=== PATIENT | female | born 1990 | race Caucasian/White ===

== ENCOUNTER 2021-04-28 20:19 | Emergency (ER) | payer MEDICAID ==
[2021-04-28 22:01] LABS: BLOOD UREA NITROGEN,BUN 10 mg/dL (7.0-18.0); CARBON DIOXIDE,CO2 22.7 mmol/L (21.0-32.0); CHLORIDE,CL 101 mmol/L (98-107); GLUCOSE RANDOM 100 mg/dL (74-106); POTASSIUM,K 3.8 mmol/L (3.5-5.1); SODIUM,NA 135 mmol/L (136-145)
== END 2021-04-28 23:13 | disposition home or self-care (01) ==
LOC: MW.ED 20:19
DX: O03.9 Complete or unspecified spontaneous abortion without complication (principal)
CPT/HCPCS: 36415; 76801; 76801-26; 80053; 81001; 84702; 85025; 86900; 86901; 99284-25

== ENCOUNTER 2022-04-09 21:18 | Inpatient (IN) | payer MEDICAID ==
[2022-04-09] MEDS ORDERED: Oxytocin/0.9 % Sodium Chloride 30 UNIT/500 ML BAG IV SCH (23:45)
[2022-04-09] MEDS ORDERED: Misoprostol 200 MCG Tab PO PRN (23:48)
[2022-04-09] MEDS ORDERED: Ondansetron 4 MG/2 ML SDV IVPUSH PRN (23:48)
[2022-04-09] MEDS ORDERED: Sodium Chloride 0.9% 10 ML Syringe FLUSH PRN (23:48)
[2022-04-09] MEDS ORDERED: Methylergonovine 0.2 MG/1 ML Amp IM PRN (23:48)
[2022-04-09] MEDS ORDERED: Sodium Chloride 0.9% 20 ML SDV IV PRN (23:48)
[2022-04-09] MEDS ORDERED: Sodium Chloride 0.9% 2.5 ML Syringe FLUSH PRN (23:48)
[2022-04-09] MEDS ORDERED: Carboprost Tromethamine 250 MCG/1 ML Amp IM PRN (23:48)
[2022-04-09] MEDS ORDERED: Water For Irrigation,Sterile 1,000 ML Container IRR PRN (23:48)
[2022-04-09] MEDS ORDERED: Butorphanol 1 MG/ML SDV IVPUSH PRN (23:48)
[2022-04-09] MEDS ORDERED: Tranexamic Acid 1,000 MG in Sodium Chloride 0.9% 100 ML IV PRN (23:48)
[2022-04-09] MEDS ORDERED: Lidocaine 1% 50 ML MDV INJECT PRN (23:48)
[2022-04-10] MEDS ORDERED: Ampicillin 2 GM in Sodium Chloride 0.9% 50 ML IV ONE ×2
[2022-04-10] MEDS ORDERED: Ampicillin 2 GM AdvVial IV ONE ×3 (00:34→00:44)
[2022-04-10] MEDS ORDERED: Sodium Chloride 0.9% 50 ML ONE (00:41)
[2022-04-10] MEDS ORDERED: Sodium Chloride 0.9% 100 ML ONE (00:46)
[2022-04-10] MEDS ORDERED: Ropivacaine/PF 400 MG/200 ML PCA ONE (01:05)
[2022-04-10] MEDS ORDERED: Lidocaine 2% with EPINEPHrine 1:200,000 20 ML SDV ONE (01:05)
[2022-04-10] MEDS ORDERED: Phenylephrine HCl In 0.9% NaCl 1 MG/10 ML Vial IVPUSH PRN (01:15)
[2022-04-10] MEDS ORDERED: Ropivacaine HCl/PF 400 MG in Premix Bag 1 BAG EPIDUR SCH (01:15)
[2022-04-10] MEDS ORDERED: Phenylephrine HCl In 0.9% NaCl 1 MG/10 ML Vial IVPUSH SCH (01:15)
[2022-04-10] MEDS ORDERED: ePHEDrine 50 MG/ML SDV IVPUSH PRN ×2 (01:15)
[2022-04-10] MEDS: Lactated Ringers 1,000 ML IV SCH ×2 (01:23→01:27)
[2022-04-10] MEDS ORDERED: Ampicillin 1 GM in Sodium Chloride 0.9% 50 ML IV SCH (04:00)
[2022-04-10] MEDS ORDERED: Acetaminophen 500 MG Tab PO PRN (06:24)
[2022-04-10] MEDS ORDERED: Lanolin 100% Cream 7 GM Tube TOP PRN (06:24)
[2022-04-10] MEDS ORDERED: oxyCODONE 5 MG Tab PO PRN (06:24)
[2022-04-10] MEDS ORDERED: Ibuprofen 800 MG Tab PO PRN (06:24)
[2022-04-10] MEDS ORDERED: Witch Hazel Medicated Pads 40/Jar TOP PRN (06:24)
[2022-04-10] MEDS ORDERED: Benzocaine/Menthol 20%-0.5% Spray 78 GM Cannister TOP PRN (06:24)
[2022-04-10] MEDS ORDERED: Ibuprofen 400 MG Tab PO PRN (06:24)
[2022-04-10] MEDS ORDERED: Docusate Sodium 100 MG Cap PO PRN (06:24)
[2022-04-10] MEDS ORDERED: Bisacodyl 10 MG Supp RECTAL PRN (06:24)
[2022-04-10] MEDS: Acetaminophen 500 MG Tab PO PRN ×2 (09:24→20:19)
[2022-04-11] MEDS: Acetaminophen 500 MG Tab PO PRN (05:37)
[2022-04-11] MEDS ORDERED: Measles, Mumps & Rubella Vaccine 0.5 ML SDV SUBCUT ONE (10:30)
== END 2022-04-11 12:10 | disposition home or self-care (01) | DRG 807 ==
LOC: MW.OB 21:18 → MW.OBCHECK 21:18 → MW.OB 22:03 → OBSVTOIN 04-10 06:10 → MW.OB 04-10 12:27
PROVIDERS: ADMIT Obstetrics & Gynecology; ATTEND Obstetrics & Gynecology
PROC: 10E0XZZ Delivery of Products of Conception, External Approach (ICD-10-PCS; principal; 2022-04-10)
PROC: 3E0R3BZ Introduction of Anesthetic Agent into Spinal Canal, Percutaneous Approach (ICD-10-PCS; 2022-04-10)
PROC: 00HU33Z Insertion of Infusion Device into Spinal Canal, Percutaneous Approach (ICD-10-PCS; 2022-04-10)
PROC: 3E0234Z Introduction of Serum, Toxoid and Vaccine into Muscle, Percutaneous Approach (ICD-10-PCS; 2022-04-10)
DX: O80 Encounter for full-term uncomplicated delivery (principal); Z37.0 Single live birth; Z3A.39 39 weeks gestation of pregnancy; Z20.822 Contact with and (suspected) exposure to COVID-19; Z86.19 Personal history of other infectious and parasitic diseases; Z23 Encounter for immunization
CPT/HCPCS: 01967; 36415; 51702; 59025; 59409; 80305-QW; 85014; 85018; 85027; 86592; 86850; 86900; 86901; 87653; 90471; 90707; A9270-GY; J0290; J2590; J2795; J7120; U0002

== ENCOUNTER 2023-12-06 12:02 | Inpatient (IN) | payer MEDICAID ==
[2023-12-06] MEDS: Lactated Ringers 1,000 ML IV SCH (13:00)
[2023-12-06] MEDS ORDERED: Butorphanol 2 MG/ML SDV IVPUSH PRN (13:45)
[2023-12-06] MEDS ORDERED: Water For Irrigation,Sterile 1,000 ML Container IRR PRN (13:45)
[2023-12-06] MEDS ORDERED: Tranexamic Acid IN NACL,ISO-OS 1,000 MG in Premix Bag 1 BAG IV PRN (13:45)
[2023-12-06] MEDS ORDERED: Terbutaline 1 MG/ML SDV SUBCUT PRN (13:45)
[2023-12-06] MEDS ORDERED: Misoprostol 200 MCG Tab PO PRN (13:45)
[2023-12-06] MEDS ORDERED: Sodium Chloride 0.9% 20 ML SDV IV PRN (13:45)
[2023-12-06] MEDS ORDERED: Lidocaine 1% 50 ML MDV INJECT PRN (13:45)
[2023-12-06] MEDS ORDERED: Carboprost Tromethamine 250 MCG/1 mL Vial IM PRN (13:45)
[2023-12-06] MEDS ORDERED: Methylergonovine 0.2 MG/1 ML Amp IM PRN (13:45)
[2023-12-06] MEDS ORDERED: Sodium Chloride 0.9% 10 ML Syringe FLUSH PRN (13:45)
[2023-12-06] MEDS ORDERED: Ondansetron 4 MG/2 ML SDV IVPUSH PRN (13:45)
[2023-12-06] MEDS ORDERED: Sodium Chloride 0.9% 2.5 ML Syringe FLUSH PRN (13:45)
[2023-12-06 13:58] LABS: HEMATOCRIT 30.7 % (37.0-47.0); HEMOGLOBIN 10.2 g/dL (12.0-16.0); MEAN CORPUSCULAR HEMOGLOBIN 25.1 pg (28.0-32.0); MEAN CORPUSCULAR HGB CONC 33.2 g/dL (32.0-36.0); MEAN CORPUSCULAR VOLUME 75.4 fL (83.0-99.0); MEAN PLATELET VOLUME 10.5 fL (9.4-12.3); PLATELET COUNT,PLT 348 K/uL (150-400); RED BLOOD CELL COUNT 4.07 M/uL (4.10-5.30); WHITE BLOOD CELL COUNT,WBC 6.83 K/uL (3.9-11.3)
[2023-12-06] MEDS: Misoprostol 50 MCG (1/2 of 100 MCG) Tab VAG PRN (14:00)
[2023-12-06] MEDS: Misoprostol 25 MCG (1/4 of 100 MCG) Tab VAG PRN (18:01)
[2023-12-07] MEDS: Oxytocin/0.9 % Sodium Chloride 30 UNIT/500 ML BAG IV SCH ×2 (00:18→08:35)
[2023-12-07] MEDS ORDERED: Bupivacaine 0.5% 10 ML SDV ONE (02:04)
[2023-12-07] MEDS ORDERED: Ropivacaine HCl/PF 200 ML ONE (02:04)
[2023-12-07] MEDS ORDERED: Phenylephrine HCl In 0.9% NaCl 1 MG/10 ML Syringe ONE (02:04)
[2023-12-07] MEDS: Ropivacaine HCl/PF 400 MG in Premix Bag 1 BAG EPIDUR SCH (02:16)
[2023-12-07] MEDS ORDERED: ePHEDrine 50 MG/ML SDV IVPUSH PRN (02:26)
[2023-12-07] MEDS ORDERED: ePHEDrine 50 MG/ML SDV IM PRN (02:26)
[2023-12-07] MEDS ORDERED: Phenylephrine HCl In 0.9% NaCl 1 MG/10 ML Syringe IVPUSH PRN (02:26)
[2023-12-07] MEDS ORDERED: Bupivacaine 0.5% 10 ML SDV INJECT ONE (02:26)
[2023-12-07] MEDS ORDERED: dexmedeTOMIDine HCl 200 MCG/2 ML SDV EPIDUR SCH (02:30)
[2023-12-07] MEDS ORDERED: Aluminum Hydroxide/Magnesium Hydroxide/Simethicone XS Susp 30 ML Cup PO PRN (08:52)
[2023-12-07] MEDS ORDERED: Lanolin 100% Cream 7 GM Tube TOP PRN (08:52)
[2023-12-07] MEDS ORDERED: Simethicone 80 MG Tab.Chew PO PRN (08:52)
[2023-12-07] MEDS ORDERED: Docusate Sodium 100 MG Cap PO PRN (08:52)
[2023-12-07 09:39] LABS: PH,UMBILICAL ARTERIAL 7.216 (7.18-7.38); PH,UMBILICAL VENOUS 7.286 (7.25-7.45)
[2023-12-07] MEDS: Sodium Ferric Gluconate Cmplex 125 MG in Sodium Chloride 0.9% 100 ML IV SCH (09:45)
[2023-12-07] MEDS: Witch Hazel Medicated Pads 40/Jar TOP PRN (10:10)
[2023-12-07] MEDS: Benzocaine/Menthol 20%-0.5% Spray 78 GM Cannister TOP PRN (10:10)
[2023-12-07] MEDS: Acetaminophen 500 MG Tab PO PRN (12:14)
[2023-12-07] MEDS: Ibuprofen 800 MG Tab PO PRN (17:12)
[2023-12-08 06:48] LABS: BASOPHILS ABSOLUTE AUTO 0.04 K/uL (0.00-0.20); BASOPHILS PERCENT AUTO 0.3 % (0.0-1.0); EOSINOPHILS ABSOLUTE AUTO 0.12 K/uL (0.00-0.45); EOSINOPHILS PERCENT AUTO 0.9 % (0.0-6.0); HEMATOCRIT 30.8 % (37.0-47.0); HEMOGLOBIN 10.1 g/dL (12.0-16.0); IMMATURE GRAN PERCENT AUTO 0.8 % (0.0-0.4); LYMPHOCYTES ABSOLUTE AUTO 3.98 K/uL (1.00-4.80); LYMPHOCYTES PERCENT AUTO 29.9 % (24.0-44.0); MEAN CORPUSCULAR HEMOGLOBIN 25.3 pg (28.0-32.0); MEAN CORPUSCULAR HGB CONC 32.8 g/dL (32.0-36.0); MEAN PLATELET VOLUME 9.9 fL (9.4-12.3); MONOCYTES ABSOLUTE AUTO 1.07 K/uL (0.00-0.80); NEUTROPHILS ABSOLUTE AUTO 7.99 K/uL (1.80-7.70); NEUTROPHILS PERCENT AUTO 60.1 % (41.0-71.0); PLATELET COUNT,PLT 294 K/uL (150-400)
== END 2023-12-08 13:09 | disposition home or self-care (01) | DRG 806 ==
LOC: MW.OBCHECK 12:02 → MW.OB 12:22 → MW.OBCHECK 13:45 → OBSVTOIN 12-07 08:53 → MW.OB 12-07 11:35
PROVIDERS: ADMIT Obstetrics & Gynecology; ATTEND Obstetrics & Gynecology
PROC: 10E0XZZ Delivery of Products of Conception, External Approach (ICD-10-PCS; principal; 2023-12-07)
PROC: 3E033VJ Introduction of Other Hormone into Peripheral Vein, Percutaneous Approach (ICD-10-PCS; 2023-12-07)
PROC: 3E0P7VZ Introduction of Hormone into Female Reproductive, Via Natural or Artificial Opening (ICD-10-PCS; 2023-12-07)
DX: O99.02 Anemia complicating childbirth (principal); O98.42 Viral hepatitis complicating childbirth; Z37.0 Single live birth; B19.20 Unspecified viral hepatitis C without hepatic coma; Z3A.39 39 weeks gestation of pregnancy
CPT/HCPCS: 36415; 59025; 59409; 82803; 85025; 85027; 86592; 86850; 86900; 86901; A9270-GY; J0665; J2371; J2590; J2795; J2916; J3490; J7120